=== PATIENT | female | born 1960 | race Caucasian/White ===

== ENCOUNTER → 2019-11-23 09:12 | Outpatient (CLI) | payer OTHER, SELFPAY | PROVIDERS: PCP Family Medicine; Visit Provider Family Medicine | DX: E03.9 Hypothyroidism, unspecified (principal) | CPT/HCPCS: 36415; 84443 ==

== ENCOUNTER → 2020-12-10 07:44 | Outpatient (CLI) | payer OTHER, SELFPAY ==
[2020-12-10 08:48] LABS: Cholesterol 197 mg/dL (200); High Density Lipoprotein 65 mg/dL; Thyroid Stim Hormone (TSH) 0.35 uIU/mL (0.358-3.74); Triglycerides 68 mg/dL; Very Low Density Lipoprotein 14 mg/dL (5-40)
== END ==
PROVIDERS: PCP Family Medicine; Referring Provider Family Medicine; Visit Provider Family Medicine
DX: Z00.00 Encounter for general adult medical examination without abnormal findings (principal); E03.9 Hypothyroidism, unspecified; U07.1 COVID-19
CPT/HCPCS: 36415; 80061; 84443; 86769

== ENCOUNTER → 2021-12-26 | Outpatient (CLI) | payer OTHER, SELFPAY ==
[2021-12-26 12:52] LABS: T4 Free Direct 1.44 ng/dL (0.76-1.46); Thyroid Stim Hormone (TSH) 0.55 uIU/mL (0.358-3.74)
== END | disposition home or self-care (01) ==
LOC: MTLAB 10:24
PROVIDERS: PCP Family Medicine; Referring Provider Family Medicine; Visit Provider Family Medicine
DX: E03.9 Hypothyroidism, unspecified (principal)
CPT/HCPCS: 36415; 84439; 84443

== ENCOUNTER 2022-06-16 12:55 | Emergency (ER) | payer OTHER, SELFPAY ==
[2022-06-16] VITALS (7 sets, daily range): BP systolic 110–177; BP diastolic 67–93; PULSE 111–132; RESP 14–20; TEMP 36.6; O2SAT 98–100; BMI 20.3; BMI 22.4
--- NOTE | 2022-06-16 13:00 | CT_ITS ---
HISTORY: Neuro deficit, acute stroke suspected. TECHNIQUE: Multiple axial images were obtained of the head without intravenous contrast. A radiation dose optimization technique was used for this scan. 224 images. COMPARISON: None. FINDINGS: BRAIN PARENCHYMA: Multiple foci and zones of low attenuation in the bilateral cerebral white matter compatible with chronic small vessel ischemic gliosis. No acute intra-axial hemorrhage identified. CSF SPACES: Mild generalized volume loss. No midline shift or other significant mass effect. No acute extra-axial hemorrhage seen. OTHER: Intact calvarium. Mild right maxillary sinus polypoid mucosal thickening. Unremarkable orbits. ASPECTS Score for Acute Strokes: 10 CT/STROKE Brain/Head without Cont IMPRESSION: No acute intracranial process identified. Chronic involutional and white matter changes. Electronically Signed: Leigh Aguilera MD at 13:12 EST ,
--- NOTE | 2022-06-16 13:00 | EKG12_ITS ---
Test Reason : STROKE TEAM Blood Pressure : / mmHG Vent. Rate : 119 BPM Atrial Rate : 119 BPM P-R Int : 138 ms QRS Dur : 070 ms QT Int : 340 ms P-R-T Axes : 076 062 043 degrees QTc Int : 478 ms Sinus tachycardia Septal infarct , age undetermined Abnormal ECG Confirmed by RICH RAMOS, HEYDI ([id number]), web editor CLAUDIA CHRISTIAN ([id number]) on 06/18/2022 10:19:18 AM Referred By: Confirmed By:HEYDI VILLANUEVA MD
--- NOTE | 2022-06-16 13:00 | CT_ITS ---
We are attempting to reach an attending provider to discuss findings. An addendum with communication details will be sent when the communication is complete. HISTORY: Neuro deficit, acute stroke suspected. TECHNIQUE: [place]/head and carotid CT angiogram protocol was performed after the intravenous administration of 100 mL Isovue 370. NASCET criteria using the distal ICAs for comparison were used for evaluation of stenoses. 3D reconstructions were reviewed. A radiation dose optimization technique was used for this scan. 1902 images. COMPARISON: CT head same day. FINDINGS: AORTIC ARCH AND BRANCHES: Mild atherosclerosis. RIGHT CCA: Mild calcified plaque at the bifurcation. No occlusion, significant stenosis or dissection. RIGHT ICA: No occlusion, significant stenosis or dissection. LEFT CCA: Mild calcified and noncalcified plaque at the bifurcation. No occlusion, significant stenosis or dissection. LEFT ICA: Minimal atherosclerosis at the origin. No occlusion, significant stenosis or dissection. RIGHT VERTEBRAL ARTERY: No occlusion, significant stenosis or dissection. LEFT VERTEBRAL ARTERY: No occlusion, significant stenosis or dissection. SOFT TISSUES: Surgical clips in the right axilla and left neck. Right apical pulmonary fibrosis. Calcified lymph node in the anterior mediastinum. ICAs: No significant stenosis at the intracranial/visualized segments. ACAs: No significant stenosis at the visualized segments. MCAs: No significant stenosis at the visualized segments. promotions executive: No significant stenosis at the visualized segments. BASILAR ARTERY: No significant stenosis. VERTEBRAL ARTERIES: No significant stenosis at the intradural/visualized segments. No evidence of intracranial aneurysm or vascular malformation. CT/STROKE CTA Head AND Neck W/Con IMPRESSION: No evidence for significant stenosis or occlusion in the carotid or vertebral arteries of the neck. No large vessel occlusion or other focal vascular abnormality in the [place] region. Electronically Signed: Leigh Aguilera MD at 13:33 EST ,
--- NOTE | 2022-06-16 13:02 | NURSING ---
NO OLD EKGS
--- NOTE | 2022-06-16 13:03 | EDS_ITS ---
HPI History of Present Illness Chief Complaint: Vision Prob Informant: patient Onset/Context/Timing Onset: Today Context: Sudden Onset Narrative Narrative: Patient presents with abrupt onset of vision change at noon today. She states she was sitting at her desk when she suddenly had a line in her left vision and her peripheral vision was blurry. She denies eye pain. No headache. She d enies any other symptom. She states her did give her aspirin in route to the hospital. Patient was seen by triage nurse who consulted with me on arrival. Patient is made a stroke alert. She states her symptoms are improving at this time but not quite returned to baseline. [facility] Medical History Breast cancer Hodgkin's lymphoma Tachycardia Home Medications levothyroxine 112 mcg tablet (Synthroid) 112 mcg PO DAILY 06/16/22 [History Last Taken Unknown] Allergy/AdvReac Type Severity Reaction Status Date / Time nut - unspecified [nuts] Allergy Anaphylaxis Verified 06/16/22 14:12 Penicillins [PCN] Allergy Rash Verified 06/16/22 14:12 Sulfa (Sulfonamide Allergy Rash Verified 06/16/22 14:12 Antibiotics) Surgical History History of appendectomy History of thyroidectomy Social History Smoking Status: Never smoker ROS ROS ED Constitutional Constitutional ED: Denies chills or fever(s) Eyes Eyes: Reports change in vision left; Denies discharge from eye(s) ENT ENT ED: Denies discharge from eye(s), rhinorrhea or sore throat Cardiovascular Cardiovascular: Denies chest pain or palpitations Respiratory/Chest Respiratory/Chest: Denies cough or dyspnea Gastrointestinal Gastrointestinal: Denies abdominal pain, diarrhea, nausea or vomiting Genitourinary Genitourinary ED: Denies difficulty urinating or dysuria Musculoskeletal Musculoskeletal: Denies back pain or extremity pain Integumentary Denies Abrasions or rash Neurologic Neurologic: Denies headache(s) or weakness Psychiatric Psychiatric: Denies anxiety or depression Endocrine Endocrinology: Denies polydipsia or polyuria Allergic/Immunologic Allergic/Immunologic ED: Denies lip swelling or urticaria EXAM Physical Exam Const Vital Signs: 06/16/22 12:58 06/16/22 13:04 06/16/22 13:00 Temperature 97.8 F 97.8 F Temperature Source Temporal Temporal Pulse Rate 111 H 132 H Respiratory Rate 18 14 Blood Pressure 146/90 H 177/77 H Blood Pressure Mean 108 110 Pulse Ox 98 100 Oxygen Delivery Method Room Air Room Air 06/16/22 13:17 06/16/22 13:30 06/16/22 14:00 Temperature 98 F Temperature Source Temporal Pulse Rate 128 H 124 H 112 H Respiratory Rate 18 18 18 Blood Pressure 155/67 H 139/83 H 111/93 H Blood Pressure Mean 96 101 99 Pulse Ox 100 99 98 Oxygen Delivery Method Room Air Room Air Room Air 06/16/22 14:30 Temperature 98 F Temperature Source Temporal Pulse Rate 116 H Respiratory Rate 20 H Blood Pressure 110/93 H Blood Pressure Mean 98 Pulse Ox 98 Oxygen Delivery Method Room Air Positive well nourished and well developed General Appearance ED: well developed HEENT Reports normocephalic and head/scalp atraumatic Eyes PERRL and EOMs intact bilaterally Neck supple Chest Wall inspection of chest normal and palpation of chest normal Resp normal respiratory effort and clear to auscultation bilaterally Cardio regular rate and regular rhythm GI normal to inspection, nondistended, normoactive bowel sounds Palpation: soft Extremity normal to inspection Neuro oriented x3 and no sensory deficits noted Sensorium / Orientation: alert Motor Exam: strength 5/5 throughout Psych mental status grossly normal Skin no rashes or lesions noted NIHSS NIHSS Initial: 1a Level of Consciousness: 0 1b LOC Questions (Score 2 if aphasic/stupor): 0 1c LOC Commands (Only score 1st attempt): 0 2 Best Gaze (If aphasic, use reflexive mvmts.): 0 3 Visual: 1 4 Facial Palsy: 0 5 Motor Arm Right (UN = amputation/fusion): 0 5 Motor Arm Left: 0 6 Motor Leg Right: 0 6 Motor Leg Left: 0 7 Limb ataxia (Only + if out of proportion): 0 8 Sensory (Aphasia/stupor=0 or 1, coma=2): 0 9 Best Language: 0 10 Dysarthria (mute, coma=2, intubated=UN): 0 11 Extinction and Inattention (only scored if +): 0 Total Score: 1 MDM MDM MDM Narrative Medical decision making narrative: Stroke alert was initiated on arrival. Patient taken for CT scan of the head along with CTA of the head and neck. Lab work obtained along with EKG and chest x-ray. Lab Data Attestation: I reviewed the patient's lab results. Labs: Laboratory Results - last 24 hr 06/16/22 06/16/22 06/16/22 13:14 13:14 13:14 WBC 9.0 RBC 3.90 L Hgb 11.7 L Hct 36.4 L MCV 93.3 MCH 30.0 MCHC 32.1 RDW Std Deviation 44.3 H RDW Coeff of Gato 13.0 Plt Count 348 MPV 10.0 Immature Gran % (Auto) 0.200 Neut % (Auto) 36.6 L Lymph % (Auto) 51.0 H [place] % (Auto) 8.4 Eos % (Auto) 2.6 Baso % (Auto) 1.2 H Absolute Neuts (auto) 3.3 Absolute Lymphs (auto) 4.58 H Nucleated RBC % 0 PT 14.1 INR 1.1 APTT 28.1 Sodium 137 Potassium 3.4 L Chloride 102 Carbon Dioxide 26.0 Anion Gap 9 BUN 13 Creatinine 0.70 Estim Creat Clear Calc 62.16 Est GFR (MDRD) Af Amer 109 Est GFR (MDRD) Non-Af 90 BUN/Creatinine Ratio 18.5 Glucose 109 H Calcium 7.9 L Troponin I High Sens 6 POC Glucose 06/16/22 13:14 WBC RBC Hgb Hct MCV MCH MCHC RDW Std Deviation RDW Coeff of Gato Plt Count MPV Immature Gran % (Auto) Neut % (Auto) Lymph % (Auto) [place] % (Auto) Eos % (Auto) Baso % (Auto) Absolute Neuts (auto) Absolute Lymphs (auto) Nucleated RBC % PT INR APTT Sodium Potassium Chloride Carbon Dioxide Anion Gap BUN Creatinine Estim Creat Clear Calc Est GFR (MDRD) Af Amer Est GFR (MDRD) Non-Af BUN/Creatinine Ratio Glucose Calcium Troponin I High Sens POC Glucose 92 Radiography Diagnostic Testing: Clinical Impression(s) from Imaging Studies Brain CT 06/16/22 13:00 IMPRESSION: No acute intracranial process identified. Chronic involutional and white matter changes. Electronically Signed: Leigh Aguilera MD at 13:12 EST , ADDENDUM: 06/16/22 1322 IMPRESSION: No acute intracranial process identified. Chronic involutional and white matter changes. N.B. : The above Results were Read Back by Leigh Aguilera MD to Camelia Garcia MD, and understanding confirmed on 06/16/2022 13:15:53 (ET). Electronically Signed: Leigh Aguilera MD at 13:12 EST , Head/Neck CTA 06/16/22 13:00 IMPRESSION: No evidence for significant stenosis or occlusion in the carotid or vertebral arteries of the neck. No large vessel occlusion or other focal vascular abnormality in the [place] region. Electronically Signed: Leigh Aguilera MD at 13:33 EST , ADDENDUM: 06/16/22 1341 IMPRESSION: No evidence for significant stenosis or occlusion in the carotid or vertebral arteries of the neck. No large vessel occlusion or other focal vascular abnormality in the [place] region. N.B. : The above Results were Read Back by Leigh Aguilera MD to Camelia Garcia MD, and understanding confirmed on 06/16/2022 13:34:33 (ET). Electronically Signed: Leigh Aguilera MD at 13:33 EST , Chest X-Ray 06/16/22 13:39 IMPRESSION: No acute cardiopulmonary process identified. Electronically Signed: Leigh Aguilera MD at 13:56 EST , EKG Initial EKG: Attestation: I personally reviewed and interpreted this EKG as follows: Interpretation: Sinus Tachycardia (Sinus tach at 119. No acute ischemia.) Treatment and Re-Evaluation Narrative: Patient evaluated by [facility] neurologist. At this time patient's symptoms are all significantly improved. He does have concern given the patient's story of sudden hemianopsia from the left eye. He did recommend MRI and would recommend patient taking aspirin daily. CBC reveals normal white count. Hemoglobin slightly low at 11.7. Coags are normal. Chemistry studies remarkable only for potassium of 3.4. Troponin is normal at 6. Portable chest x-ray per my interpretation reveals no acute findings. Radiology interpretation is reviewed and agrees. CT of the head along with CTA of the head and neck all revealed no acute evidence of ischemic infarct or LVO. On repeat evaluation patient states her symptoms are continuing to improve. Her ABCD D2 score is calculated and is 2 making her low risk. I spoke with MRI and they are able to get her in today for a noncontrast MRI. If this is negative patient will be discharged to home to take daily aspirin. She would prefer this and we did discuss potential of staying overnight in the hospital for monitoring and MRI. Discharge Plan Triage Chief Complaint: Vision Prob Other Complaint: Stroke Alert ED Provider: Camelia Garcia Dx/Rx/DC Orders Clinical Impression: Brain TIA Instructions: ED TIA: Transient Ischemic Attack Prescriptions: No Action levothyroxine [Synthroid] 112 mcg tablet 112 mcg PO DAILY Primary Care Provider: Kaycee Marrero Referrals: Kaycee Marrero MD [Primary Care Provider] - 1-2 Weeks Activity Restrictions/Additional Instructions: As you discussed with the neurologist, please take aspirin daily. Disposition Disposition: Home, Self Care
[2022-06-16 13:24] LABS: Absolute Lymphocyte Count 4.58 X10^3/uL (0.83-4.51); Absolute Neutrophil Count 3.3 X10^3/uL (2.0-7.7); Basophil# 0.11 X10^3/uL; Basophil% 1.2 % (0-1); Eosinophil# 0.23 X10^3/uL; Eosinophils% 2.6 % (0-5); Hematocrit 36.4 % (37-47); Hemoglobin 11.7 g/dL (12.0-15.0); Lymphocyte # 4.58 X10^3/ul (0.83-4.51); Mean Corp Hgb Conc 32.1 g/dL (32-36); Mean Corpuscular Volume 93.3 fL (81-99); Monocyte# 0.75 X10^3/uL; Monocyte% 8.4 % (0-10); NRBC Flagged by Analyzer 0 % (0-5); Neutrophil # 3.29 X10^3/uL (2.7-7.7); Neutrophil % 36.6 % (47-70); Platelet Count 348 K/mm3 (150-450); RBC Distribution Width SD 44.3 fl (35.1-43.9)
--- NOTE | 2022-06-16 13:28 | ED.RN ---
Dr. hWite on computer at 1320.
[2022-06-16 13:34] LABS: International Normalized Ratio 1.1; Partial Thromboplast Time 28.1 Seconds (24.1-36.2); Prothrombin Time (Protime)PT. 14.1 SECONDS (11.7-14.9)
--- NOTE | 2022-06-16 13:39 | RAD_ITS ---
HISTORY: Neuro deficit, acute, stroke suspected. TECHNIQUE: XR Chest 1 View. COMPARISON: None. FINDINGS: CARDIOMEDIASTINAL BORDERS: Cardiac silhouette within normal limits in size. Mediastinal contour unremarkable with calcification of the aortic knob. LUNGS: Minimal right apical scarring. PLEURA: No pleural effusion or pneumothorax seen. OSSEOUS STRUCTURES: Generalized osteopenia. OTHER: Surgical clips at the left thoracic inlet, right chest, and upper abdomen. RAD/Chest 1 View IMPRESSION: No acute cardiopulmonary process identified. Electronically Signed: Leigh Aguilera MD at 13:56 EST ,
[2022-06-16 13:42] LABS: Anion Gap 9 (5-15); BUN 13 mg/dL (7-18); BUN/Creat Ratio 18.5 RATIO (10-20); Calcium,Total 7.9 mg/dL (8.5-10.1); Chloride 102 mmol/L (98-107); EST Glomerular Filtration Rate 90 mL/min (>60); Est Glom Filt Rate - Afr Amer 109 mL/min (>60); Estimated Creatinine Clearance 62.16 ml/min; Glucose 109 mg/dL (74-106); Potassium 3.4 mmol/L (3.5-5.1); Sodium Level 137 mmol/L (136-145); Troponin-I HS 6 pg/mL (3.0-54.0)
[2022-06-16 13:50] LABS: Bedside Glucose 92 mg/dL (74-106)
--- NOTE | 2022-06-16 14:12 | MRI_ITS ---
EXAM: MR HEAD WITHOUT INTRAVENOUS CONTRAST CLINICAL INDICATION: TIA TECHNIQUE: Multiplanar and multisequence MR images of the brain were obtained without intravenous contrast. This report was created using [employer] report generation technology. COMPARISON: None. FINDINGS: BRAIN AND EXTRA-AXIAL SPACES: Normal. No intra- or extra-axial hemorrhage. No evidence of acute infarct. No intracranial mass or mass effect. There is preservation of the wood[place]/white matter interface. Posterior fossa structures are unremarkable. Ventricles are appropriate for age. No hydrocephalus. Basal cisterns are patent. SELLA: Normal. Normal sella turcica, pituitary gland, infundibular stalk, optic chiasm and hypothalamus. AUDITORY SYSTEM: Normal. The internal auditory canals are patent. BONES/JOINTS: Intact calvarium. SINUSES: 13 mm mucus retention cyst within the right maxillary sinus. MASTOID AIR CELLS: Unremarkable as visualized. Clear. ORBITS: Unremarkable as visualized. Both globes, extraocular muscles, optic nerves and retrobulbar fat appear unremarkable. VASCULATURE: Unremarkable as visualized. Normal flow voids in the major intracranial circulation. MRI/Brain without Contrast IMPRESSION: Normal MRI brain. Electronically Signed: Miky Ochoa MD at 16:04 EST ,
--- NOTE | 2022-06-16 14:52 | ED.RN ---
pt in MRI, unable to complete [facility] at this time
--- NOTE | 2022-06-16 15:32 | CHAPLAIN ---
Type of Pastoral Visit ___ Initial Visit ___ Follow-up Visit ___ On-call Visit ___ General Patient Visit ___ Spiritual Assessment ___ Family Conference ___ Bereavement ___ Rapid Response ___ Code Blue ___ Other (describe below) Pastoral Care Referral From ___ Patient ___ Family ___ Nurse ___ Physician ___ Public Relations Assistant ___ Quantitative Consultant ___ Other (describe below) Sacrament/Intervention ___ Active listening ___ Anointing ___ Caodaism ___ Bereavement ___ Communion ___ [place] exploration ___ ___ Life review ___ Prayer ___ Reconciliation ___ Sacrament of Sick ___ Supportive presence ___ Wedding ___ Other (describe below) Pastoral Comments responded to stroke alert; patient was being evaluated and then sent to CT; no family members were present; observed that pt was alert and speaking; charge entry specialist did not request further support
--- NOTE | 2022-06-16 15:53 | ED.RN ---
pt in MRI for 1529 NIH
--- NOTE | 2022-06-16 21:02 | CM.ED ---
Social Work Note Referral Source: Stroke alert Referral Reason: Emotional support SW responded to Stroke alert in an attempt to provide patient/patient's family with support. Patient was out of the room for testing, SW informed by RN there was no family at that time. SW remains available if needs arise. Tatyana Salvador BOOM MAN, MALENA
== END 2022-06-16 16:41 | disposition home or self-care (01) ==
PROVIDERS: Emergency Provider Emergency Medicine; PCP Family Medicine; Visit Provider Emergency Medicine
DX: G45.9 Transient cerebral ischemic attack, unspecified (principal); H53.8 Other visual disturbances; Z79.899 Other long term (current) drug therapy
CPT/HCPCS: 70450; 70496; 70498; 70551; 71045; 80048; 82962; 84484; 85025; 85610; 85730; 93005; 99285; Q9967; A4216

== ENCOUNTER → 2022-06-30 | Outpatient (CLI) | payer OTHER, SELFPAY ==
[2022-06-30 10:03] LABS: Cholesterol 207 mg/dL (200); High Density Lipoprotein 74 mg/dL; Triglycerides 59 mg/dL; Very Low Density Lipoprotein 12 mg/dL (5-40)
== END | disposition home or self-care (01) ==
LOC: MTLAB 07:57
PROVIDERS: PCP Family Medicine; Referring Provider Family Medicine; Visit Provider Family Medicine
DX: G45.9 Transient cerebral ischemic attack, unspecified (principal)
CPT/HCPCS: 36415; 80061

== ENCOUNTER → 2022-07-24 | Outpatient (CLI) | payer OTHER, SELFPAY ==
--- NOTE | 2022-07-24 09:55 | ECHOD_ITS ---
Reason For Study: TIA Procedure This was a 2D Doppler, Color Flow transthoracic echocardiogram. The study was technically difficult. Due to bilat mastectomy & reconstruction. PT refused IV for bubble study & Definity. Exam performed in department. Left Ventricle Normal size and thickness. The left ventricular ejection fraction is 60 %. Normal diastology for age. Right Ventricle Normal right ventricle. Atria The left and right atria are normal. Mitral Valve Mild-Moderate (1-2+) mitral valve insufficiency. Tricuspid Valve Mild tricuspid valve insufficiency. Pulmonary artery systolic pressure is 36 mmHg. Aortic Valve Moderate diffuse aortic valve calcification. Moderate aortic stenosis. Mild-Moderate (1-2+) aortic valve insufficiency. Pulmonic Valve The pulmonic valve is not well visualized. Great Vessels The aortic root is not well visualized. Pericardium/Pleural No pericardial effusion. MMode/2D Measurements & Calculations LVIDd: 3.7 cm IVSd: 0.72 cm LVOT diam: 1.9 cm LVIDs: 2.7 cm LVPWd: 0.69 cm LVOT area: 2.9 cm2 RVDd: 2.1 cm FS: 28.0 % Ao root diam: 2.4 cm LAV(MOD-bp): 33.7 ml LVAd ap4: 20.0 cm2 LAV(MOD-bp) Indexed: 23.5 ml/m2 LVLd ap4: 6.6 cm LAV(MOD-sp2): 32.1 ml EDV(MOD-sp4): 50.8 ml LAV(MOD-sp4): 32.1 ml EDV(sp4-el): 51.7 ml LVAs ap4: 11.9 cm2 LVLs ap4: 5.6 cm ESV(MOD-sp4): 21.3 ml ESV(sp4-el): 21.6 ml EF(MOD-sp4): 58.1 % EF(sp4-el): 58.3 % LVAd ap2: 15.9 cm2 SV(MOD-sp4): 29.5 ml SV(MOD-sp2): 20.5 ml LVLd ap2: 5.9 cm EDV(MOD-sp2): 36.1 ml EDV(sp2-el): 36.1 ml LVAs ap2: 9.4 cm2 LVLs ap2: 5.0 cm ESV(MOD-sp2): 15.6 ml ESV(sp2-el): 14.9 ml EF(MOD-sp2): 56.7 % SV(sp4-el): 30.1 ml LA A4 area: 14.0 cm2 RA A4 area: 9.7 cm2 Time Measurements MV dec time: 0.20 sec Doppler Measurements & Calculations MV E max hema: 109.5 cm/sec Lat Peak E' Hema: 9.2 cm/sec Med Peak E' Hema: 7.3 cm/sec MV A max hema: 135.4 cm/sec E/E' lat: 12.0 E/E' med: 15.1 MV E/A: 0.81 Ao V2 max: 342.2 cm/sec AI max hema: 453.5 cm/sec LV V1 max: 101.3 cm/sec Ao max P.9 mmHg AI max P.3 mmHg LV V1 max P.1 mmHg Ao V2 mean: 255.0 cm/sec AI dec slope: 528.5 cm/sec2 LV V1 mean P.3 mmHg Ao mean P.2 mmHg AI P1/2t: 251.3 msec LV V1 mean: 72.4 cm/sec Ao V2 VTI: 71.2 cm LV V1 VTI: 21.0 cm AV (velocity ratio): 0.29 BETH(I,D): 0.85 cm2 BETH(V,D): 0.85 cm2 SV(LVOT): 60.4 ml PA V2 max: 108.5 cm/sec TR max hema: 276.5 cm/sec TR max P.6 mmHg ECHO/Echo Complete Interpretation Summary The left ventricular ejection fraction is 60 %. Mild-Moderate (1-2+) mitral valve insufficiency. Mild tricuspid valve insufficiency. Pulmonary artery systolic pressure is 36 mmHg. Mild-Moderate (1-2+) aortic valve insufficiency. Moderate to severe aortic stenosis. Ordering Physician: Kaycee Marrero Referring Physician: Kaycee Marrero Performed By: Ara Ryder, MIKHAIL, RVT
--- NOTE | 2022-07-24 09:55 | CDU_ITS ---
Reason For Study: HX of TIA Rt. Velocities/BP Lt. Velocities/BP Prox CCA 60.7/14.5 cm/sec. Prox CCA 84.2/17.1 cm/sec. Mid CCA 66.4/18.2 cm/sec. Mid CCA 67.7/17.1 cm/sec. Dist CCA 78.7/22.6 cm/sec. Dist CCA 62.2/14.9 cm/sec. Prox ICA 63.9/21.4 cm/sec. Prox ICA 51.2/14.9 cm/sec. Mid ICA 80.9/31.7 cm/sec. Mid ICA 52.0/18.8 cm/sec. Dist ICA 79.0/28.9 cm/sec. Dist ICA 74.9/22.7 cm/sec. Rt. ICA/CCA = 1.2. Lt. ICA/CCA = 1.1. Prox ECA 103.9/17.9 cm/sec. Prox ECA 106.3/10.6 cm/sec. Rt. Vert. 51.6/14.7 cm/sec. Lt. Vert. 60.1/15.7 cm/sec. Right Extracranial There is homogeneous, smooth atherosclerotic plaque noted in the right common carotid artery. There is intimal thickening but no significant atherosclerotic plaque noted in the right internal carotid artery. There is intimal thickening but no significant atherosclerotic plaque noted in the right external carotid artery. Antegrade flow is noted in the right vertebral artery. Left Extracranial There is homogeneous, smooth atherosclerotic plaque noted in the left common carotid artery. There is heterogeneous, irregular atherosclerotic plaque noted in the left internal carotid artery. There is intimal thickening but no significant atherosclerotic plaque noted in the left external carotid artery. Antegrade flow is noted in the left vertebral artery. Procedure Carotid Duplex [id number]. This is a Carotid Duplex examination using B-mode, color flow and specral Doppler. The exam was diagnostic. Exam performed in department. VL/Carotid Duplex Ultrasound Interpretation Summary Normal right extracranial internal carotid. Mild (<50%) stenosis left extracranial internal carotid. Patent and antegrade vertebrals bilaterally. Ordering Physician: Kaycee Marrero Performed By: Indra Connolly RVT
== END | disposition home or self-care (01) ==
LOC: CVS 09:51
PROVIDERS: PCP Family Medicine; Visit Provider Family Medicine
DX: Z86.73 Personal history of transient ischemic attack (TIA), and cerebral infarction without residual deficits (principal)
CPT/HCPCS: 93306; 93880

== ENCOUNTER → 2023-01-07 | Outpatient (CLI) | payer OTHER, SELFPAY ==
[2023-01-07 12:19] LABS: Absolute Lymphocyte Count 3.01 X10^3/uL (0.83-4.51); Absolute Neutrophil Count 3.6 X10^3/uL (2.0-7.7); Basophil% 1.3 % (0-1); Eosinophil# 0.31 X10^3/uL; Eosinophils% 3.9 % (0-5); Hematocrit 42.7 % (37-47); Hemoglobin 13.5 g/dL (12.0-15.0); Lymphocyte # 3.01 X10^3/ul (0.83-4.51); Lymphocyte % 38.3 % (19-41); Mean Corp Hgb Conc 31.6 g/dL (32-36); Mean Corpuscular Hgb 30.4 pg (27.0-32.0); Mean Corpuscular Volume 96.2 fL (81-99); Mean Platelet Vol. 11.5 fl (6.2-12.0); Monocyte% 10.2 % (0-10); NRBC Flagged by Analyzer 0 % (0-5); Neutrophil # 3.62 X10^3/uL (2.7-7.7); Platelet Count 360 K/mm3 (150-450); RBC Distribution Width CV 13.5 % (11.6-14.6); RBC Distribution Width SD 47.8 fl (35.1-43.9); Red Blood Count 4.44 M/mm3 (4.2-5.4); White Blood Count 7.9 K/mm3 (4.4-11.0)
[2023-01-07 12:57] LABS: ALB/GLOB Ratio 0.9 RATIO (0.9-2.4); AST(SGOT) 21 U/L (15-37); Alanine Aminotransfer ALT/SGPT 42 U/L (13-56); Albumin, Serum 3.6 g/dL (3.2-5.0); Alkaline Phosphatase 73 U/L (45-117); Anion Gap 6 (5-15); BUN 17 mg/dL (7-18); BUN/Creat Ratio 22.1 RATIO (10-20); Calcium,Total 8.8 mg/dL (8.5-10.1); Chloride 107 mmol/L (98-107); Cholesterol 225 mg/dL (200); Creatinine, Serum 0.77 mg/dL (0.55-1.02); EST Glomerular Filtration Rate 81 mL/min (>60); Est Glom Filt Rate - Afr Amer 98 mL/min (>60); Globulin 3.8 g/dL (2.2-4.2); Glucose 92 mg/dL (74-106); High Density Lipoprotein 74 mg/dL; Potassium 3.9 mmol/L (3.5-5.1); Protein, Total 7.4 g/dL (6.4-8.2); Sodium Level 141 mmol/L (136-145); T4 Free Direct 1.24 ng/dL (0.76-1.46); Thyroid Stim Hormone (TSH) 1.05 uIU/mL (0.358-3.74); Triglycerides 75 mg/dL; Very Low Density Lipoprotein 15 mg/dL (5-40)
== END | disposition home or self-care (01) ==
LOC: BFHLAB 08:03
PROVIDERS: PCP Family Medicine; Referring Provider Family Medicine; Visit Provider Family Medicine
DX: Z00.00 Encounter for general adult medical examination without abnormal findings (principal); E03.9 Hypothyroidism, unspecified; G45.9 Transient cerebral ischemic attack, unspecified; I35.0 Nonrheumatic aortic (valve) stenosis
CPT/HCPCS: 36415; 80053; 80061; 84439; 84443; 85025

== ENCOUNTER → 2024-01-20 | Outpatient (CLI) | payer OTHER, SELFPAY ==
[2024-01-20 10:18] LABS: Absolute Lymphocyte Count 2.96 X10^3/uL (0.83-4.51); Absolute Neutrophil Count 3.1 X10^3/uL (2.0-7.7); Basophil# 0.14 X10^3/uL; Basophil% 1.9 % (0-1); Eosinophil# 0.33 X10^3/uL; Eosinophils% 4.5 % (0-5); Hematocrit 41.8 % (37-47); Hemoglobin 13.3 g/dL (12.0-15.0); Lymphocyte # 2.96 X10^3/ul (0.83-4.51); Lymphocyte % 40.8 % (19-41); Mean Corp Hgb Conc 31.8 g/dL (32-36); Mean Corpuscular Hgb 29.8 pg (27.0-32.0); Mean Corpuscular Volume 93.5 fL (81-99); Mean Platelet Vol. 10.9 fl (6.2-12.0); Monocyte# 0.75 X10^3/uL; Monocyte% 10.3 % (0-10); NRBC Flagged by Analyzer 0 % (0-5); Neutrophil # 3.07 X10^3/uL (2.7-7.7); Neutrophil % 42.4 % (47-70); Platelet Count 340 K/mm3 (150-450); RBC Distribution Width CV 13.8 % (11.6-14.6); RBC Distribution Width SD 46.9 fl (35.1-43.9); Red Blood Count 4.47 M/mm3 (4.2-5.4); White Blood Count 7.3 K/mm3 (4.4-11.0)
[2024-01-20 11:17] LABS: ALB/GLOB Ratio 0.8 RATIO (0.9-2.4); AST(SGOT) 21 U/L (15-37); Alanine Aminotransfer ALT/SGPT 36 U/L (13-56); Albumin, Serum 3.4 g/dL (3.2-5.0); Alkaline Phosphatase 65 U/L (45-117); Anion Gap 6 (5-15); BUN 14 mg/dL (7-18); BUN/Creat Ratio 17.6 RATIO (10-20); Chloride 106 mmol/L (98-107); Cholesterol 237 mg/dL (200); EST Glomerular Filtration Rate 78 mL/min (>60); Est Glom Filt Rate - Afr Amer 94 mL/min (>60); Glucose 96 mg/dL (74-106); High Density Lipoprotein 73 mg/dL; Potassium 4.3 mmol/L (3.5-5.1); Protein, Total 7.4 g/dL (6.4-8.2); Sodium Level 140 mmol/L (136-145); T4 Free Direct 1.25 ng/dL (0.76-1.46); Triglycerides 87 mg/dL; Very Low Density Lipoprotein 17 mg/dL (5-40)
== END | disposition home or self-care (01) ==
PROVIDERS: PCP Family Medicine; Referring Provider Family Medicine; Visit Provider Family Medicine
DX: Z00.00 Encounter for general adult medical examination without abnormal findings (principal); E03.9 Hypothyroidism, unspecified; G45.9 Transient cerebral ischemic attack, unspecified; I35.0 Nonrheumatic aortic (valve) stenosis
CPT/HCPCS: 36415; 80053; 80061; 84439; 84443; 85025

== ENCOUNTER → 2024-01-27 | Outpatient (CLI) | payer OTHER, SELFPAY ==
--- NOTE | 2024-01-27 09:11 | RAD_ITS ---
STUDY: X-RAY CHEST REASON FOR EXAM: Female, 63 years old. Chronic cough. TECHNIQUE: Frontal and lateral views of the chest. COMPARISON: December 14, 2022 FINDINGS: Stable hyperinflation. There is no demonstrated pleural abnormality. Normal size heart. Normal mediastinum and wojciech. Normal visualized pulmonary arteries. Normal visualized aortic arch and descending thoracic aorta. Mild thoracic spondylosis with increased kyphosis. Normal visualized ribs, clavicles, and shoulders. Clips projected over the right breast and right axilla and in the left lower neck, unchanged. Clips directed over the mid and upper abdomen unchanged. RAD/Chest PA and Lateral IMPRESSION: Stable chest with no acute or active cardiopulmonary disease. Electronically Signed: David Mccabe MD at 9:39 EDT ,
== END | disposition home or self-care (01) ==
PROVIDERS: PCP Family Medicine; Referring Provider Family Medicine; Visit Provider Family Medicine
DX: R05.3 Chronic cough (principal)
CPT/HCPCS: 71046

== ENCOUNTER → 2024-06-14 | Outpatient (CLI) | payer BC, SELFPAY ==
[2024-06-14 10:55] LABS: T4 Free Direct 1.17 ng/dL (0.76-1.46)
== END | disposition home or self-care (01) ==
LOC: MTLAB 08:04
PROVIDERS: PCP Family Medicine; Referring Provider Family Medicine; Visit Provider Family Medicine
DX: E03.9 Hypothyroidism, unspecified (principal)
CPT/HCPCS: 36415; 84439; 84443

== ENCOUNTER → 2025-03-16 | Outpatient (CLI) | payer BC, SELFPAY ==
[2025-03-16 10:37] LABS: Hematocrit 40.4 % (37-47); Hemoglobin 13.2 g/dL (12.0-15.0); Immature Granulocytes Count 0.020 X10^3/uL (0.0-0.0); Mean Corp Hgb Conc 32.7 g/dL (32-36); Mean Corpuscular Volume 92.0 fL (81-99); Mean Platelet Vol. 10.9 fl (6.2-12.0); NRBC Flagged by Analyzer 0 % (0-5); Platelet Count 307 K/mm3 (150-450); RBC Distribution Width CV 13.1 % (11.6-14.6); RBC Distribution Width SD 44.0 fl (35.1-43.9); Red Blood Count 4.39 M/mm3 (4.2-5.4); White Blood Count 6.5 K/mm3 (4.4-11.0)
[2025-03-16 11:27] LABS: AST(SGOT) 21 U/L (<=31); Alanine Aminotransfer ALT/SGPT 18 U/L (<=34); Albumin, Serum 4.2 g/dL (3.4-4.8); Alkaline Phosphatase 61 U/L (35-104); Anion Gap 9 (5-15); BUN 13 mg/dL (4-19); BUN/Creat Ratio 18.8 RATIO (10-20); Calcium,Total 9.4 mg/dL (7.6-11.0); Carbon Dioxide 29.2 mmol/L (21.0-32.0); Chloride 103 mmol/L (98-108); Cholesterol 223 mg/dL (<=200); Globulin 3.1 g/dL (2.2-4.2); Glucose 95 mg/dL (70-99); Low Density Lipoprotein Calc. 143 mg/dL; Potassium 4.4 mmol/L (3.3-5.1); Triglycerides 69 mg/dL; Very Low Density Lipoprotein 14 mg/dL (5-40); cholesterol:hdl ratio screen 3.30
== END | disposition home or self-care (01) ==
LOC: MTLAB 07:54
PROVIDERS: PCP Family Medicine; Referring Provider Family Medicine; Visit Provider Family Medicine
DX: Z00.00 Encounter for general adult medical examination without abnormal findings (principal); E03.9 Hypothyroidism, unspecified; G45.9 Transient cerebral ischemic attack, unspecified; I35.0 Nonrheumatic aortic (valve) stenosis
CPT/HCPCS: 36415; 80053; 80061; 84439; 84443; 85025